=== PATIENT | female | born 1990 | race Caucasian/White ===

== ENCOUNTER 2018-06-10 16:41 | Emergency (ER) | payer BC ==
[2018-06-10 16:54] VITALS: BP 111/70
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
--- NOTE | 2018-06-10 17:47 | RAD ---
Indication: Neck pain, arm paresthesias. 5 views of the cervical spine demonstrates vertebral bodies to be normal in height. There is straightening of the normal lordosis. Disc spaces all well-preserved. Spinal canal appears to be intact. IMPRESSION: Straightening of the normal lordosis. No fracture.
== END 2018-06-10 18:00 | disposition home or self-care (01) ==
LOC: UCEAST 16:41
DX: S16.1XXA Strain of muscle, fascia and tendon at neck level, initial encounter (principal); S46.812A Strain of other muscles, fascia and tendons at shoulder and upper arm level, left arm, initial encounter; X58.XXXA Exposure to other specified factors, initial encounter; Y92.9 Unspecified place or not applicable; F17.200 Nicotine dependence, unspecified, uncomplicated
CPT/HCPCS: 72050; 99202; G0463